=== PATIENT | female | born 1950 | race Two or more races ===

== ENCOUNTER 2018-11-04 10:34 | Inpatient (IN) | payer OTHER ==
[~2018-11-04] VITALS: Ht 154.9 cm; Wt 81.6 kg
[2018-11-11] MEDS ORDERED: ATORVASTATIN CA40 MG PO (10:56)
[2018-11-11] MEDS ORDERED: GLIPIZIDE ER10 MG PO (10:57)
[2018-11-11] MEDS ORDERED: METFORMIN HCL1000 M2 PO (10:58)
[2018-11-11] MEDS ORDERED: VITAMIN D35000 UNIT PO (10:58)
[2018-11-11] MEDS ORDERED: COZAAR25 MG PO (10:58)
== END 2018-11-22 18:17 | disposition home or self-care (01) | DRG 330 ==
LOC: SURH 11-11 09:15 → ADM 11-11 09:15 → EDSTATUS 11-11 09:15 → SURG 11-19 05:43 → O/R 11-19 05:43 → SURG 11-19 13:08
PROVIDERS: ADMIT Colon & Rectal Surgery
PROC: 07TB4ZZ Resection of Mesenteric Lymphatic, Percutaneous Endoscopic Approach (ICD-10-PCS; 2018-11-19)
PROC: 0DJD8ZZ Inspection of Lower Intestinal Tract, Via Natural or Artificial Opening Endoscopic (ICD-10-PCS; 2018-11-19)
PROC: 0DTN4ZZ Resection of Sigmoid Colon, Percutaneous Endoscopic Approach (ICD-10-PCS; principal; 2018-11-19 14:00)
DX: K57.32 Diverticulitis of large intestine without perforation or abscess without bleeding (principal); C19 Malignant neoplasm of rectosigmoid junction; I10 Essential (primary) hypertension; E11.9 Type 2 diabetes mellitus without complications; E78.00 Pure hypercholesterolemia, unspecified

== ENCOUNTER 2020-02-20 06:00 | Day surgery (SDC) | payer OTHER ==
[~2020-02-20 06:00] MED LIST: ATORVASTATIN CA40 MG PO; COZAAR25 MG PO; GLIPIZIDE ER10 MG PO; METFORMIN HCL1000 M2 PO; VITAMIN D35000 UNIT PO
== END 2020-02-20 09:45 | disposition home or self-care (01) ==
LOC: AMB-ENDOS 06:00 → ADM 13:00
PROVIDERS: ATTEND Colon & Rectal Surgery
DX: K62.89 Other specified diseases of anus and rectum (principal); K64.1 Second degree hemorrhoids; Z20.828 Contact with and (suspected) exposure to other viral communicable diseases

== ENCOUNTER 2020-04-21 08:45 | Inpatient (IN) | payer OTHER ==
[~2020-04-21] VITALS: Ht 154.9 cm; Wt 81.6 kg
[2020-04-21] MEDS ORDERED: LEVO-T50 MCG PO (10:46)
[2020-04-21] MEDS ORDERED: LIPITOR40 M1 PO (10:46)
[2020-04-29] MEDS ORDERED: AFLURIA QU (08:25)
[2020-04-29] MEDS ORDERED: TERBINAFINE HC250 MG (08:26)
[2020-04-29] MEDS ORDERED: SUCRALFATE1 GM (08:26)
[2020-04-29] MEDS ORDERED: PANTOPRAZOLE SO40 MG (08:26)
[2020-04-29] MEDS ORDERED: CLOTRIMAZOLE-BE15 G1 (08:26)
== END 2020-04-30 17:40 | disposition home or self-care (01) | DRG 333 ==
LOC: ADM 08:45 → CIR.AMB 04-28 08:45 → EDSTATUS 04-28 08:45 → SURH 04-28 08:45 → O/R 04-28 09:49 → SURH 04-28 20:12
PROVIDERS: ADMIT Colon & Rectal Surgery; ATTEND Colon & Rectal Surgery
PROC: 07TB4ZZ Resection of Mesenteric Lymphatic, Percutaneous Endoscopic Approach (ICD-10-PCS; 2020-04-28)
PROC: 0DTP4ZZ Resection of Rectum, Percutaneous Endoscopic Approach (ICD-10-PCS; principal; 2020-04-28 21:30)
DX: C19 Malignant neoplasm of rectosigmoid junction (principal); K92.1 Melena; I10 Essential (primary) hypertension; E78.00 Pure hypercholesterolemia, unspecified; E11.9 Type 2 diabetes mellitus without complications; R59.0 Localized enlarged lymph nodes